=== PATIENT | female | born 1995 | race Caucasian/White ===

== ENCOUNTER 2024-05-25 21:18 | Outpatient (REF) | payer OTHER, SELFPAY | END 2024-05-25 21:19 | disposition home or self-care (01) | LOC: LAB 21:18 | PROVIDERS: Visit Provider Physician Assistant | DX: Z01.419 Encounter for gynecological examination (general) (routine) without abnormal findings (principal) | CPT/HCPCS: 88175 ==

== ENCOUNTER 2025-06-09 14:37 | Outpatient (REF) | payer BC, SELFPAY ==
--- OUTSIDE RECORDS SUMMARY | 2025-06-15 15:19 | XMS_ITS | CCD ---
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 [facility] Comment on above: TESTS RESULT FLAG UNITS REF RANGE LAB Clinician Provided Cytology Information Source.............Cervix;Endocervix No. of containers..01 ThinPrep Vial Age Algo ACOG Bronwyn... -28 10 FLAG LEGEND: L-Low Normal,H-High Normal,LL-Alert Low,HH-Alert High <-Panic Low,>-Panic High,A-Abnormal,AA-Critical Abnormal Performed at: 01 =G [facility] [address] [address] Lis Mclean MD, IGP, RFX APTIMA HPV ASCU Note . [facility] Comment on above: TESTS RESULT FLAG UNITS REF RANGE LAB DIAGNOSIS: 02 NEGATIVE FOR INTRAEPITHELIAL LESION OR MALIGNANCY. Specimen adequacy: 02 Satisfactory for evaluation. No endocervical component is identified. Performed by: 02 Shoshana Perez, Can Dragger ([facility]) . 02 Note: Note 02 The Pap smear is a screening test designed to aid in the detection of premalignant and malignant conditions of the uterine cervix. It is not a diagnostic procedure and should not be used as the sole means of detecting cervical cancer. Both false-positive and false-negative reports do occur. Test Methodology: Note 02 The [employer](R) Retail Helper was unable to read this specimen. Therefore a manual review was performed. FLAG LEGEND: L-Low Normal,H-High Normal,LL-Alert Low,HH-Alert High <-Panic Low,>-Panic High,A-Abnormal,AA-Critical Abnormal Performed at: 02 WB [facility] [address] [place] [address] Lis Mclean MD, . 02 The HPV DNA reflex criteria were not met with this specimen result therefore, no HPV testing was performed. The HPV DNA reflex criteria were not met with this specimen result therefore, no HPV testing was performed. Performed at: = - [facility] [address] [id number] Marble Setter: Lis Mclean MD, Phone: [phone] Performed at: - [facility] [address] [id number] Marble Setter: Lis Mclean MD, Phone: [phone] BRUSH-SPATULA CERVIX ENDOCERVIX [facility] PATHOLOGY REQUEST FOR LAB CO RPon 06-15-2025 PATHOLOGY REQUEST FOR LAB CAROLINE [facility] Comment on above: See report. Scanned copy available in [facility] US PELVIC COMPLETE W/ TVon 0 12-23-2024 [...] II, MD, PHD at 24-Dec-2024 09:01:53 AM [facility] Normal Not Available Comment on above: Order Comment: US PELVIS-TRANSVAG IF IND ICATED No LMP recorded. IGP,APTIMA HPV,AGE GDLNon AGE GDLN ACOG TESTING Note . [facility] Comment on above: TESTS RESULT FLAG UNITS REF RANGE LAB Clinician Provided Cytology Information Source.............Cervix;Endocervix No. of containers..01 ThinPrep Vial Age Algo ACOG Bronwyn... FLAG LEGEND: L-Low Normal,H-High Normal,LL-Alert Low,HH-Alert High <-Panic Low,>-Panic High,A-Abnormal,AA-Critical Abnormal Performed at: 01 =G [address] [address] Lis Mclean MD, IGP, RFX APTIMA HPV ASCU Note . [facility] Comment on above: TESTS RESULT FLAG UNITS REF RANGE LAB DIAGNOSIS: 02 NEGATIVE FOR INTRAEPITHELIAL LESION OR MALIGNANCY. FUNGAL ORGANISMS MORPHOLOGICALLY CONSISTENT WITH DONNA SPECIES ARE PRESENT. THIS SPECIMEN WAS RESCREENED PART OF OUR CLAIM INVESTIGATOR PROGRAM. Specimen adequacy: 02 Satisfactory for evaluation. No endocervical component is identified. Performed by: 03 Fawn Herzog, Brake Operator ([facility]) QC reviewed by: 02 Adwoa Rincon Brake Operator . 02 Note: Note 02 The Pap [...] <-Panic Low,>-Panic High,A-Abnormal,AA-Critical Abnormal Performed at: [address] [address] Lis Mclean MD, 03 [facility] [address] [place] [address] Chase Delacruz PhD, Performed at: = - [facility] [id number] Marble Setter: Lis Mclean MD, Phone: [phone] Performed at: [facility] [id number] Marble Setter: Lis Mclean MD, Phone: [phone] BRUSH-SPATULA CERVIX ENDOCERVIX [facility] URETHRITIS/DISCHARGE PLUS VA GINITIS (HTRX)on 05-27-2024 ATOPOBIUM VAGINAE 0.000 [facility] ATOPOBIUM VAGINAE Not detected [facility] BVAB 2,3 (BACTERIAL VAGINOSIS ASSOCIATED BACTERIA 2, 3); MOBILUNCUS SPP 0.000 [facility] BVAB 2,3 (BACTERIAL VAGINOSIS ASSOCIATED BACTERIA 2, 3); MOBILUNCUS SPP Not detected [facility] DONNA ALBICANS, PARAPSILOSIS, TROPICALIS 0.000 [facility] DONNA ALBICANS, PARAPSILOSIS, TROPICALIS Not detected [facility] DONNA GLABRATA 0.000 [facility] DONNA GLABRATA Not detected [facility] DONNA KRUSEI 0.000 [facility] DONNA KRUSEI Not detected [facility] CHLAMYDIA TRACHOMATIS 0.000 [facility] CHLAMYDIA TRACHOMATIS Not detected [facility] GARDNERELLA VAGINALIS 0.000 [facility] GARDNERELLA VAGINALIS Not detected [facility] MEGASPHAERA (TYPES 1, 2) 0.000 [facility] MEGASPHAERA (TYPES 1, 2) Not detected [facility] MYCOPLASMA GENITALIUM 0.000 [facility] MYCOPLASMA GENITALIUM Not detected [facility] NEISSERIA GONORRHOEAE 0.000 [facility] NEISSERIA GONORRHOEAE Not detected [facility] TRICHOMONAS VAGINALIS 0.000 [facility] TRICHOMONAS VAGINALIS Not detected [facility] XR HIPS BILAT W OR WO PELVIS 2 VWSon 03-16-2024 XR HIPS BILAT W OR WO PELVIS 2 VWS XR HIPS BILAT W OR WO PELVIS 2 VWS XR HIPS BILAT W OR WO PELVIS 2 VWS Hqpk-Cxlgc-Ubwqzfj disease, left Findings: There is no fracture or destructive lesion. Impression: No acute findings. Chronic deformity of bilateral hips noted. Stable bilateral hardware. 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 Finalized by Dylon Haider MD on 03/16/2024 6:26 AM Normal [facility] PAP ACOG PANEL 2: 21 to 29on 02-27-2023 Age Gdln ACOG Testing Normal [facility] Comment on above: Performed By: #### [id number] #### [facility] [address] [place], [place] [id number] Dr. Cas Muñiz PAP ACOG PANEL 2: 21 to 29on 02-19-2022 . . Normal [facility] Comment on above: Performed By: #### [id number] #### [facility] [address] [place], [place] [address] Dr. Cas Muñiz Age Gdln ACOG Testing 21-29 Normal [facility] Comment on above: Performed By: #### [id number] #### [facility] [address] [place] [address] Dr. Cas Muñiz DIAGNOSIS: Comment [facility] Comment on above: Result Comment: NEGATIVE FOR INTRAEPITHE LIAL LESION OR MALIGNANCY. FUNGAL ORGANISMS MORPHOLOGICALLY CONSISTENT WITH DONNA SPECIES ARE PRESENT. Performed By: #### [id number] #### [facility] [address] [place] [address] Dr. Cas Muñiz Methodology: Comment Normal [facility] Comment on above: Result Comment: This liquid based ThinPr ep(R) pap test was screened with the use of an image guided system. Performed By: #### [id number] #### [facility] [address] [place] [address] Dr. Cas Muñiz Note: Comment Normal [facility] Comment on above: Result Comment: The Pap smear is a scree dottie test designed to aid in the detection of premalignant and malignant conditions of the uterine cervix. It is not a diagnostic procedure and should not be used as the sole means of detecting cervical cancer. Both false-positive and false-negative reports do occur. . Performed By: #### 4 [id number] #### [facility] [address] [place] [address] Dr. Cas Muñiz Performed by: Comment Normal [facility] Comment on above: Result Comment: Mary Jane Dobbs Cytotechfrancisca ologvioleta (ASCP) Performed By: #### 4 [id number] #### [facility] [address] [place] [address] Dr. Cas Muñiz Reflex Criteria: Comment [facility] Comment on above: Result Comment: The HPV DNA reflex crite chemo were not met with this specimen result therefore, no HPV testing was performed. . Performed By: #### 4 [id number] #### [facility] [address] [place] [address] Dr. Cas Muñiz Specimen adequacy: Comment Normal [facility] Comment on above: Result Comment: Satisfactory for evaluat ion. Endocervical and/or squamous metaplastic cells (endocervical component) are present. Performed By: #### 4 [id number] #### [facility] [address] [place] [address] [address] Cas Muñiz VAGINITIS/VAGINOSIS DNA PROB Tima 02-15-2022 Donna species Positive Abnormal Negative [facility] Comment on above: Performed By: #### VAGINT #### [facility] [address] [address] [address] Cas Muñiz Gardnerella vaginalis Positive Abnormal Negative [facility] Comment on above: Performed By: #### VAGINT #### [facility] [address] [address] [address] Cas Muñiz Trichomonas vaginalis Negative Normal Negative [facility] Comment on above: Performed By: #### VAGINT #### [facility] [address] [address] [address] Cas Muñiz Gynecology Office/Clinic Not tima [...] of ovarian cancer presented. 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 with less menstrual cramping [...] Medical History Ongoing No qualifying data Historical Hrbg-Dllas-Zowouog disease Procedure/Surgical History left hip surgery (11/05/2013), [...] HCG, Urine: Negative (04/21/19 10:37:00 EDT) Normal [facility] Comment on above: Result Comment: Electronically Signed By : Diana Seo MD\.br\Date and Time Signed: 04/21/19 10:59 EDT CNOVon 08-16-2017 CNOV Office Visit (INOPIN) SAMMIE DYER ([id number]) 1995 FDate Time Provider Jqcwhvpehv30/17/17 3:15 PM OPAL POSEY During your visit today, we recorded the following information about you: Last Period 08/01/17Opal Posey MD 08/16/2017 3:55 PM SignedI have [...] stretching and yoga-physical therapy-discussed importance of continued conditioningPeParson MDPGY-3 Orthopaedic SurgeryPager [phone] 16, 20173:49 PMAfter 5:00PM and weekends, please page 2-BONEReferring [...] Resolved Hip impingement syndrome [M25.859] INVALID FOR*Letter [facility] Center[facility] M.D.Department of Pediatric Orthopaedic Surgery / [id number] [place], [place] [address]Mgdtzi: [facility]/[phone] Appts.: [facility]/[phone]: [facility]/[phone] 16, 2017RE: Sammie GomezCCF#: [id number]: (M25.859) Hip impingement syndrome, unspecified laterality(primary encounter [...] Status:Closed by OPAL POSEY MD on 08/16/17 Normal [facility] PROGRESSon 08-16-2017 PROGRESS HNO ID: [id number] thor: Randy (Res) SuraceService: (none)Author Type: ResidentType: Progress NotesFiled: 08/16/2017 3:55 PMNote Text:Orthopaedic Clinic Follow-up Progress NoteAugust 16, 20173:42 PMSammie [...] importance of continued conditioningPeJANELLE ParsonGY-3 Orthopaedic SurgeryPager [phone] 20163:49 PMAfter 5:00PM and weekends, please page 2-BONE Normal [facility] PROGRESS HNO ID: [id number] thor: Opal Mcdaniels: (none)Author Type: PhysicianType: Progress NotesFiled: 08/16/2017 3:55 PMNote Text:I have reviewed the history and physical obtained and documented by theresident and I personally participated in the smalls components. I agree withthe findings and plan of care, with the additions contained within mydictation.Opal Posey M.D. Normal [facility] PROGRESS HNO ID: [id number] thor: Sheila Rodriguez RtService: (none)Author Type: (none)Type: Progress NotesFiled: 08/16/2017 3:18 PMNote Text: Radiology Service Progress NotePATIENT NAME: Sammie GomezMRN: [id number] OF SERVICE: August 16, 2017TIME: 3:04 PMPATIENT IDENTITY VERIFICATION COMPLETED USING TWO (2) METHODS: Patientconfirmed name verbally and Date of .PATIENT GENDER DATA: Female. status: : NoBreastfeeding status: NO.PATIENT RELEVANT IMPLANT DATA REVIEWED: Not ApplicableRADIOLOGY DEPARTMENT: General X-ray: Exam(s) Completed: Pelvis X-Ray:Pelvis with Hip LeftPERIPHERAL IV DATA: Not applicableSIGNED BY: Sheila Rodriguez RtNov2016 3:04 PM Normal [facility] XR HIP 3V PELV+ AP/LAT LTon 08-16-2017 [...] JOHNSON MD on Aug 16 2017 4:46PM [id number] Normal [facility] CNOVon 05-10-2017 CNOV Office Visit (INOPIN) SAMMIE DYER ([id number]) 1995 FDate Time Provider Department05/10/17 3:15 PM [...] and will likely reassess in 4-6 months timeclinically.Opal Posey, MDReferring Provider: SELF [200]Allergies As of Date: 05/10/2017(No Known Allergies)Date Reviewed: 05/10/2017Reviewed by: Gracia Gambino Ma - Fully AssessedReason for Visit: Established Patient [175] Cmt: left hip painPrimary Visit Diagnosis:Hip impingement syndrome, unspecified laterality [M25.859] Other Visit Diagnosis:Trochanteric bursitis of left hip [M70.62]Order(s):CONSULT TO PHYSICAL THERAPY [9032] Order #: [id number]: 1Problem List As Of Date 05/10/2017 Noted Resolved Hip impingement syndrome [M25.859] INVALID FOR* Status:Closed by OPAL POSEY MD on 05/10/17 Normal [facility] PROGRESSon 05-10-2017 PROGRESS HNO ID: [id number] thor: Opal PoseySer: (none)Author Type: PhysicianType: Progress NotesFiled: 05/10/2017 3:45 PMNote Text:ORTHOPAEDIC SURGERYReferring Physician:SELFCC: Left hip painHPI: Sammie Gomez is a pleasant 21 year old female who [facility]. Sammie has [...] in 4-6months time clinically.Opal Posey MD Normal [facility] PROGRESS HNO ID: [id number] thor: Lisa (Rt) Ruthie Rojo: (none)Author Type: TechnicianType: Progress NotesFiled: 05/10/2017 2:47 PMNote Text: Radiology Service Progress NotePATIENT NAME: Sammie GomezMRN: [id number] OF SERVICE: May 10, 2017TIME: 2:47 PMPATIENT IDENTITY VERIFICATION COMPLETED USING TWO (2) METHODS: Patientconfirmed name verbally and ID band matches..PATIENT GENDER DATA: Female. 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: [employer] Transcribe Date/Time: May 10 2017 2:54PDictated by : JUAN M COPELAND MDThis examination was interpreted and the report reviewed and electronically signed by: JUAN M COPELAND MD on May 10 2017 2:57PM EST Normal [facility] Vital Signs Date Time Vital Sign Value Performing Clinician Beni canales 06-09-2025 16:03-0400 Body mass index (BMI) [Ratio] 30.03 kg/m2 Eladia Pete ATTRACTION WORKER Work Phone: [facility] 06-09-2025 16:03-0400 Body weight 75.07 kg Eladia Juan R ATTRACTION WORKER Work Phone: [facility] 06-09-2025 16:03-0400 Diastolic blood pressure 68 mm[Hg] Eladia Juan R ATTRACTION WORKER Work Phone: [facility] 06-09-2025 16:03-0400 Systolic blood pressure 120 mm[Hg] Eladia Bradshawly ATTRACTION WORKER Work Phone: [facility] 05-25-2024 14:27-0400 Body mass index (BMI) [Ratio] 27.96 kg/m2 Caryl Bellevue PA Work Phone: [facility] 05-25-2024 14:27-0400 Body weight 69.91 kg Caryl Carlito PA Work Phone: [facility] 05-25-2024 14:27-0400 Diastolic blood pressure 70 mm[Hg] Caryl Bellevue PA Work Phone: [facility] 05-25-2024 14:27-0400 Systolic blood pressure 120 mm[Hg] Caryl Carlito PA Work Phone: [facility] Encounters Encounter Date Encounter Type Care Provider Facility Start: 06-09-2025 End: 06-09-2025 Patient encounter procedure Eladia Pete ATTRACTION WORKER Work Phone: [facility] Start: 06-09-2025 End: 06-09-2025 Periodic preventive med est patient 18-39 yrs Eladia Pete ATTRACTION WORKER Work Phone: [facility] F[facility]ima NASH Comment on above: Well woman exam with routine gynecological exam Start: 06-09-2025 End: 06-09-2025 ambulatory ELADIA BRADSHAWLY Not Available Start: 06-09-2025 End: 06-09-2025 Bamboo flowsheet Eladia Bradshawly ATTRACTION WORKER Work Phone: [facility] Start: 06-09-2025 End: 06-15-2025 Bamboo flowsheet Eladia Bradshawly ATTRACTION WORKER Work Phone: [facility] Start: 06-09-2025 End: 06-15-2025 [facility] Result Encounter Eladia Pete ATTRACTION WORKER Work Phone: [facility] Unsolicited Start: 06-09-2025 End: 06-15-2025 External Result Encounter Walter Portillo DO Work Phone: [facility] Unsolicited Start: 12-23-2024 End: 12-23-2024 ambulatory ELADIA JUAN R Not Available Start: 07-06-2024 End: 07-06-2024 ambulatory [...] Start: 05-25-2024 End: 05-27-2024 External Result Encounter Caryl Mayerjosé miguel BOYCE Work Phone: [facility] Unsolicited Start: 05-25-2024 End: 05-25-2024 Patient encounter procedure Caryl Carlito BOYCE Work Phone: [facility] Work Phone: Start: 05-25-2024 End: 05-25-2024 Periodic preventive med est patient 18-39 yrs Caryl Carlito BOYCE Work Phone: [facility] Comment on above: Well woman exam with routine gynecological exam; Exposure to STD; Vaginal discharge Start: 03-14-2024 End: 03-14-2024 ambulatory [facility] Start: 02-18-2023 End: 02-18-[address] ARLETTE VARGAS . Facility: Start: 02-13-2022 End: 02-13-[address] TA LISTED REQUEST Facility: Start: 08-16-2017 End: 08-16-2017 Ambulatory OPAL POSEY [facility] Start: 05-10-2017 End: 05-14-2017 Ambulatory OPAL POSEY [facility] Procedures Date Procedure Procedure Detail Performing Clinician Start: 06-09-2025 PATHOLOGY REQUEST FO R LAB CAROLINE Walter Portillo DO Work Phone: Start: 06-09-2025 IGP,APTIMA HPV,AGE GDLN Eladia Pete ATTRACTION WORKER Work Phone: Start: 05-25-2024 URETHRITIS/DISCHARGE PLUS VAGINITIS (HTRX) Caryl BOYCE Work Phone: Start: 05-25-2024 IGP,APTIMA HPV,AGE GDLN Caryl BOYCE Work Phone: Plan of Treatment Date Care Activity Detail Author Start: 06-15-2026 End: 06-15-2026 Patient encounter procedure 06/15/2026 4:00 PM EDT [facility] [address] [place] [id number] Walter Portillo DO [address] [place] [address] [facility] Start: 06-09-2025 End: 06-09-2025 Patient encounter procedure [facility] Comment on above: Arrived Start: 05-31-2025 Influenza vaccination Influenza Vacc ine (#1) [facility] Start: 07-06-2024 End: 07-06-2024 Patient encounter procedure 07/06/2024 3:50 PM EDT Office Visit [facility] [address] [place] [id number] Caryl Ch, PA [address] [place] [address] [facility] Start: 05-31-2024 Influenza vaccination Influenza Vacc ine (#1) [facility] Start: 05-25-2024 End: 05-25-2024 Patient encounter procedure 05/25/2024 2:00 PM EDT Office Visit [facility] [address] [place] [phone] Caryl Ch, PA [address] [place], [place] [id number] Arrived [facility] Comment on above: Arrived CHLAMYDIA TRACHOMATI S (GENITO/STI) CHLAMYDIA TRACHOMATIS (GENITO/STI) Lab Routine Exposure to STD Ordered: 05/25/2024 [facility] Comment on above: Ordered: 05/25/2024 Cytology Cervical or vaginal smear or scraping study Pap Smear Pathology and Cytology Routine Well woman exam with routine gynecological exam Ordered: 05/25/2024 [facility] Work Phone: Comment on above: Ordered: 05/25/2024 Cytology Cervical or vaginal smear or scraping study Pap Smear Pathology and Cytology Routine Well woman exam with routine gynecological exam Ordered: 06/09/2025 [facility] Work Phone: Comment on above: Ordered: 06/09/2025 Neisseria gonorrhoea e DNA [Presence] in Unspecified specimen by HEATHER with probe detection Neisseria gonorrhea DNA probe, direct Lab Routine Exposure to STD Ordered: 05/25/2024 [facility] Comment on above: Ordered: 05/25/2024 SURESWAB(R) ADVANCED VAGINITIS PLUS, TMA SURESWAB(R) ADVANCED VAGINITIS PLUS, TMA Pathology and Cytology Routine Vaginal discharge Ordered: 05/25/2024 [facility] Comment on above: Ordered: 05/25/2024 Payers Date Payer Category Payer [facility] [id number] 2024 Unknown [id number] 2024 Medicaid MEDICAID [facility] [id number] 2024-Present [phone] [address] [place] [address] Medicaid [id number] 1995 Unknown [id number] 1995 Unknown [id number] 1995 Unknown [id number] 1995 Unknown [id number] 1259 1995 Unknown [id number] 1259 1995 Unknown [id number] 1259 1959 Unknown [id number] 1959 Unknown [id number] 1959 Unknown [id number] Social History Date Type Detail Facility Start: 02-11-2023 Tobacco smoking stat [facility] Never smoked tobacco [facility] Start: 05-25-2024 End: 06-09-2025 Alcoholic beverage intake Lifetime non-drinker (finding) [facility] Start: 02-20-2024 End: 06-09-2025 [facility] of [facility] function [facility] Start: 02-20-2024 End: 06-09-2025 Tobacco use panel [facility] Start: 03-07-2023 Alcohol Comment caffeine intak e: 1-2 cups per day; coffee [facility] Start: 1995 Sex assigned at Not [...] Diagnosis Date Perthes disease (HHS-HCC) Pleurisy 11/2015 [facility] [place] Skin rash Social History Tobacco Use [...] nursing note reviewed. Exam conducted with a feed adviser present. Vitals: Estimated body mass index is [...] them. Patient can also view results via [employer]. I reinforced importance of condom use for [...] for a telehealth appointment. Patients Phone #: [phone] (mobile) Current Medications: currently has no medications [...] OTHER SURGICAL HISTORY 2019 childbirth OVARY SURGERY 2018 Right ovary removed TUBAL LIGATION Left 2020 [...] History: Diagnosis Date Perthes disease Pleurisy 11/2015 [facility] [place]-pleurisy Skin rash Social History Tobacco Use [...] nursing note reviewed. Exam conducted with a feed adviser present. Vitals: Estimated body mass index is [...] of: AUSTEN Raines documented in this encounter [facility] Evaluation note Note Date & Type Note Facility Evaluation note Diagnosis Yeast infection- Primary documented in this encounter [facility] Evaluation note Note Date & Type Note Facility Evaluation note Diagnosis Well woman exam with routine gynecological exam Routine gynecological examination Exposure to STD Vaginal discharge Leukorrhea, not specified as infective documented in this encounter [facility] Evaluation note Note Date & Type Note Facility Evaluation note Diagnosis Well woman exam with routine gynecological exam Routine gynecological examination documented in this encounter [employer] Healthcare Summary Purpose Family History No Family [...] section and content) DATE CREATED AUTHOR 03/25/2018 [facility] DATE CREATED AUTHOR AUTHOR'S ORGANIZ ATION 05/08/2019 [facility] DATE CREATED AUTHOR AUTHOR'S ORGANIZ ATION 07/01/2022 [facility] DATE CREATED AUTHOR AUTHOR'S ORGANIZ ATION 03/08/2023 [facility] DATE CREATED AUTHOR AUTHOR'S ORGANIZ ATION 03/16/2024 [facility] DATE CREATED AUTHOR AUTHOR'S ORGANIZ ATION 06/12/2025 [facility] [place] Reason for Visit (unrecogniz ed section and [...] BE BASED ON THE PRIMARY CLINICAL RECORDS. [facility] [employer] [facility]. provides no warranty or guarantee of the accuracy or completeness of information in this document.
== END 2025-06-09 14:38 | disposition home or self-care (01) ==
LOC: LAB 14:37
PROVIDERS: Visit Provider Obstetrics & Gynecology
DX: N90.89 Other specified noninflammatory disorders of vulva and perineum (principal)

== ENCOUNTER 2025-06-09 20:22 | Outpatient (REF) | payer BC, SELFPAY ==
--- OUTSIDE RECORDS SUMMARY | 2024-02-26 06:00 | XMS_ITS ---
Author Organization [facility] vices Address [address] [place], [place] [id number] Care Team Providers Care Quarry Supervisor Dimension Stone Name Role Phone Johnnie Savage Unavailable [phone] REASON FOR VISIT 2 Week Fatigue, LCP disease Social History Sex Assigned At : Social History Observation Description Sex Assigned At Female Encounters Encounter Location Date Provider Diagnosis Main [address] [place], [place] [id number] 02/26/2024 Savage Blair Plan Of Treatment No Information Progress Notes * Marichuy HARRISOB:[birth year] (29 yo F)Acc No.[id number]:02/26/2024 Medical Note Patient: Sammie GARCIA Provider: Shelley Blair PA-C :1995 A ge:28 Y S ex:Female Date:02/26/2024 Address:[address] [place], [place] [phone] Subjective: * Chief Complaints: * 1 . 2 Week Fatigue, LCP disease. * Medical History: Objective: * Vitals: Assessment: Plan: * Treatment: * Billing Information: * Visit Code: * Procedure Codes: * Electronic signature of AUSTEN Vergara on 06/09/2025 at 03:50 PM EDT Sign off status: Pending * Provider: Shelley Blair PA-C Date: 0 02/26/2024 Generated for Printi ng/Faxing/eTransmitting on: 0 06/09/2025 03:50 PM EDT
--- OUTSIDE RECORDS SUMMARY | 2024-10-26 10:00 | XMS_ITS ---
Author Organization [facility] Address [address] [place] [address] Care Team Providers Care Card Punching Machine Operator Name Role Phone Bryan Benoit Unavailable [phone] Hakeem Reno Unavailable [phone] REASON FOR VISIT LEFT HIP PAIN NO FILMS WANTS TO SEE RSS Encounters Encounter Location Date Provider Diagnosis [facility] [address] [place] [phone] 10/26/2024 Hakeem Reno Left hip pain M25 .552 Assessments Encounter Date Diagnosis (ICD Code) Assessment Notes Treatment Notes Treatment Clinical Notes Section Notes 10/26/2024 Left hip pain (ICD-10 - M25.552) Plan Of Treatment Pending Test Test Name Order Date RSS: HIP LEFT PREOP AP LAT, AP PELVIS [facility] [place] [id number] 10/26/2024 Progress Notes * ONESIMO HARRISDOB:1995 (29 yo F)Acc No.[id number]:10/26/2024 Patient: Delphine AMAYA ONESIMO Carroll Provider: Anushka Reno MD :1995 A ge:28 Y S ex:Female Date:10/26/2024 Address:[address] [place], [place] [phone] Subjective: * Chief Complaints: * 1 . LEFT HIP PAIN NO FILMS WANTS TO SEE RSS. * Medical History: Objective: * Vitals: Assessment: * Assessment: 1. L eft hip pain - M25.552 (Primary) Plan: * Treatment: * Procedure Codes: 7 3502 X-RAY EXAM HIP UNI 2-3 VIEWS Forms: * Images: * Electronic signature of Hakeem Reno MD on 06/09/2025 at 03:50 PM EDT Sign off status: Pending * Provider: Anushka Reno MD Date: 0 10/26/2024 Generated for Bonifacio urbina/Lauren/Sy on: 0 06/09/2025 03:50 PM EDT
--- OUTSIDE RECORDS SUMMARY | 2025-06-09 16:00 | XMS_ITS | Encounter Summary ---
Author Organization [facility] Address [address] [place] [address] Care Team Providers Care Collision Repair Technician Name Role Phone Unavailable Primary Care Provider Unavailabl e Reason for Visit * Reason Comments Well Women Visit Encounter Details Date Type Department Care Team (Latest Contact Info) Description 06/09/2025 4:00 PM EDT Procedure Visit [facility] [address] [address] Eladia Pete, MADELYN [address] [facility] [address] [place] [address] Well woman exam with routine gynecological exam Social History Tobacco Use Types Packs/Day Years Used Date Smoking Tobacco: Never Alcohol Use Standard Drinks/Week Comments Never 0 (1 standard drink = 0.6 oz pure alcohol) caffeine intake: 1-2 cups per day; coffee Comments Unknown Sex and Gender Information Value Date Recorded Sex Assigned at Not on file Legal Sex Female 7:11 PM EDT Gender Identity Not on file Sexual Orientation Not on file documented as of this encounter Last Filed Vital Signs Vital Sign Reading Time Taken Comments Blood Pressure 120/68 06/09/2025 4:03 PM EDT Pulse - - Temperature - - Respiratory Rate - - Oxygen Saturation - - Inhaled Oxygen Concentration - - Weight 75.1 kg (165 lb 8 oz) 06/09/2025 4:03 PM EDT Height - - Body Mass Index 30.03 09/28/2020 12:00 PM EST documented in this encounter Progress Notes * AUSTEN Raines - 06/09/2025 4:00 PM EDT Reason for Appointment: Patient ID: Sammie Davis is a 29 y.o. female who presents for Well Women Visit Patient presents today for Annual Exam. MEDICATIONS No current outpatient medications ALLERGIES Allergies Allergen Reactions ??? 2nd Skin Quick Heal Hives Steri strips PROBLEMS Active Ambulatory Problems Diagnosis Date Noted ??? No Active Ambulatory Problems Resolved Ambulatory Problems Diagnosis Date Noted ??? No Resolved Ambulatory Problems Past Medical History: Diagnosis Date ??? 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 Pleurisy 11/2015 ??? Skin rash HISTORY PAST MEDICAL HISTORY SOCIAL HISTORY Past Medical History: Diagnosis Date ??? 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 Pleurisy 11/2015 [facility]-ple[facility] ??? Skin rash Social History Tobacco Use ??? Smoking status: Never ??? Smokeless tobacco: Not on file Substance Use Topics ??? Alcohol use: Never Comment: caffeine intake: 1-2 cups per day; coffee ??? Drug use: Never FAMILY HISTORY Family History Problem Relation Name Age of Onset ??? Mental illness Father Suicide age 44 ??? Cervical cancer Maternal Grandmother SURGICAL HISTORY Past Surgical History: Procedure Laterality Date ??? OTHER SURGICAL HISTORY 2000 Severe lazy eye repair ??? OTHER SURGICAL HISTORY 2002 Surgery d/t Perthes Dz Right leg ??? OTHER SURGICAL HISTORY 2013 RT Hip repair (2 screws) ??? OTHER SURGICAL HISTORY 2019 childbirth ??? OVARY SURGERY 2018 Right ovary removed ??? TUBAL LIGATION Left 2020 REVIEW OF SYSTEMS Review of Systems: Review of Systems Constitutional: Negative. HENT: Negative. Eyes: Negative. Respiratory: Negative. Cardiovascular: Negative. Gastrointestinal: Negative. Genitourinary: Negative. Musculoskeletal: Negative. Skin: Negative. Neurological: Negative. All other systems reviewed and are negative. Hematological: Negative. Endocrine: Negative. Allergic/Immunologic: Negative. OBJECTIVE Objective: Physical Exam Constitutional: Appearance: Normal appearance. She is well-developed. Genitourinary: Vulva normal. Right Adnexa: not tender and no mass present. Left Adnexa: not tender and no mass present. No cervical discharge. Breasts: Breasts are soft. Right: Normal. Left: Normal. HENT: Head: Normocephalic. Nose: Nose normal. Mouth/Throat: Mouth: Mucous membranes are moist. Cardiovascular: Rate and Rhythm: Normal rate and regular rhythm. Pulmonary: Effort: Pulmonary effort is normal. Breath sounds: Normal breath sounds. Abdominal: General: Bowel sounds are normal. There is no distension. Palpations: Abdomen is soft. Tenderness: There is no abdominal tenderness. There is no guarding or rebound. Musculoskeletal: General: No swelling. Normal range of motion. Cervical back: Normal range of motion. Right lower leg: No edema. Left lower leg: No edema. Neurological: General: No focal deficit present. Mental Status: She is alert and oriented to person, place, and time. Skin: General: Skin is warm and dry. Psychiatric: Mood and Affect: Mood normal. Behavior: Behavior normal. Vitals and nursing note reviewed. Exam conducted with a wire coater present. Vitals: Estimated body mass index is 30.03 kg/m?? as calculated from the following: Height as of 20: 5' 2.25 . Weight as of this encounter: 165 lb 8 oz. BP: 120/68 Patient's last menstrual period was 05/29/2025 (exact date). ASSESSMENT & PLAN ICD-10-CM 1. Well woman exam with routine gynecological exam Z01.419 Pap Smear No orders of the defined types were placed in this encounter. Annual Wellness Exam: Patient presents today for routine annual exam. Patient states she has no current complaints. Patients vitals were reviewed and within normal limits. Growth and development is noted to be appropriate for age. Menstrual history is noted to be regular with no concerns reported. No mental health concerns was expressed. Pap Smear: Speculum was inserted into the vagina and pap was obtained without difficulty. No HPV testing was performed per age guideline. Patient was advised that pap results could take anywhere from 7 to 10 days to receive and our office will reach out to the patient with those once we have them. Patient canalso view results via ticketeat. I reinforced importance of condom use for STI prevention. Patient declined cultures to be performed with today's visit. Breast Exam: Upon examination, clinical breast exam was noted to be normal. Patient was counseled on breast self-awareness, including the importance of knowing what is normal for her own breasts and promptly reporting any changes such as new lumps, skin dimpling, nipple discharge, or pain. Screening mammogram recommended annually beginning at age 40 or earlier if risk factors are present. Discussed signs and symptoms of breast cancer and when to seek medical attention. Answered all patient questions. Contraceptive Counseling (if applicable): Patient is currently using tubal as a form of contraceptive. Follow Up: Patient is to return to our office in one year for annual exam unless needed otherwise. Documented by AUSTEN Raines on behalf of: Eladia Pete NP documented in this encounter Plan of Treatment Upcoming Encounters Date Type Department Care Team (Late st Contact Info) Description 06/15/2026 4:00 PM EDT Procedure Visit [facility] [address] [facility] [phone] Walter Portillo DO [address] [place] [address] Scheduled Orders Name Type Priority Associated Diagnoses Orde r Schedule Pap Smear Pathology and Cytology Routine Well woman exam with routine gynecological exam Ordered: 06/09/2025 documented as of this encounter Visit Diagnoses Diagnosis Well woman exam with routine gynecological exam Routine gynecological examination documented in this encounter
--- OUTSIDE RECORDS SUMMARY | 2025-06-09 20:26 | XMS_ITS | Clinical Summary ---
Author Organization [facility] Address [address] [place] [address] Care Team Providers Care Ledger Poster Name Role Phone Unavailable Primary Care Provider Unavailabl e Allergies Active Allergy Reactions Criticality Noted Date Comments 2nd Skin Quick Heal Hives 02/18/2023 Steri strips Medications No known medications Encounters Date Type Department Care Team Description 06/09/2025 4:00 PM EDT Procedure Visit [facility] [address] [place] [address] Eladia Pete NP Well woman exam with routine gynecological exam 06/09/2025 Bamboo flowsheet [facility] [address] [facility] [place] [address] Eladia Pete NP from Last 3 Months Family History Medical History Relation Name Comments Mental illness Father Suicide age 4 4 Cervical cancer Maternal Grandmother Relation Name Status Comments Father Maternal Grandmother Mother Alive Social History Tobacco Use Types Packs/Day Years Used Date Smoking Tobacco: Never Tobacco Cessation:Counseling Given: Not Answered Alcohol Use Standard Drinks/Week Comments Never 0 (1 standard drink = 0.6 oz pure alcohol) caffeine intake: 1-2 cups per day; coffee Comments Unknown Sex and Gender Information Value Date Recorded Sex Assigned at Not on file Legal Sex Female 7:11 PM EDT Gender Identity Not on file Sexual Orientation Not on file Last Filed Vital Signs Vital Sign Reading Time Taken Comments Blood Pressure 120/68 06/09/2025 4:03 PM EDT Pulse - - Temperature - - Respiratory Rate - - Oxygen Saturation - - Inhaled Oxygen Concentration - - Weight 75.1 kg (165 lb 8 oz) 06/09/2025 4:03 PM EDT Height 158.1 cm (5' 2.25 ) 09/28/2020 12:[address] Body Mass Index 30.03 09/28/2020 12:00 PM EST Plan of Treatment Upcoming Encounters Date Type Department Care Team (Late st Contact Info) Description 06/15/2026 4:00 PM EDT Procedure Visit [facility] [address] [facility] [place] [address] Walter Portillo DO [address] [facility] [place] [address] Health Maintenance Due Date Last Done Comments Influenza Vaccine (#1) [address] [facility]
--- OUTSIDE RECORDS SUMMARY | 2025-06-09 20:26 | XMS_ITS | Encounter Summary ---
Author Organization [facility] Address [address] [place] [address] Care Team Providers Care Plasterer Stucco Name Role Phone Unavailable Primary Care Provider Unavailabl e Encounter Details Date Type Department Care Team (Late Contact Info) Description 06/09/2025 Bamboo flowsheet [facility] [address] [place] [address] Eladia Pete, MADELYN [address] [facility] [address] [place], [phone] Social History Tobacco Use Types Packs/Day Years [...] on file documented as of this encounter Plan of Treatment Upcoming Encounters Date Type Department Care Team (Late st Contact Info) Description 06/15/2026 4:00 PM EDT Procedure Visit [facility] [address] [place] [address] Walter Portillo DO [address] [facility] [address] [place], [facility] documented as of this encounter Visit Diagnoses Not on filedocumented in this encounter
--- OUTSIDE RECORDS SUMMARY | 2025-06-09 20:26 | XMS_ITS | Encounter Summary ---
Author Organization [facility] Address [address] [place] [address] Care Team Providers Care Automatic Lathe Operator Name Role Phone Unavailable Primary Care Provider Unavailabl e Encounter Details Date Type Department Care Team (Late st Contact Info) Description 06/24/2024 Abstract [facility] [address] [place] [address] Walter Portillo DO [address] [place], [place] [address] Social History Tobacco Use Types Packs/Day Years Used Date Smoking Tobacco: Never Alcohol Use Standard Drinks/Week Comments Never 0 (1 standard drink = 0.6 oz pure alcohol) caffeine intake: 1-2 cups per day; coffee Comments No Sex and Gender Information Value Date Recorded Sex Assigned at Not on file Legal Sex Female 7:11 PM EDT Gender Identity Not on file Sexual Orientation Not on file documented as of this encounter Plan of Treatment Upcoming Encounters Date Type Department Care Team (Late st Contact Info) Description 06/15/2026 4:00 PM EDT Procedure Visit [facility] [address] [place] [address] Walter Portillo DO [address] [place], [place] [id number] documented as of this encounter Visit Diagnoses Not on filedocumented in this encounter
--- OUTSIDE RECORDS SUMMARY | 2025-06-09 20:26 | XMS_ITS | Encounter Summary ---
Author Organization [facility] Address [address] [place] [address] Care Team Providers Care Special Procedures Tech Name Role Phone Unavailable Primary Care Provider Unavailabl e Encounter Details Date Type Department Care Team (Late Contact Info) Description 02/14/2023 Abstract [facility] [address] [place] [address] Walter Portillo DO [facility] [address] [place], [place] [address] Social History Tobacco Use Types Packs/Day Years [...] on file Sexual Orientation Not on file COVID-19 Exposure Response Date Recorded In the last 10 days, have yo u been in contact with someone who was confirmed or suspected to have Coronavirus/COVID-19? No / Unsure 02/17/2023 3:03 PM EDT documented as of this encounter Plan of Treatment Upcoming Encounters Date Type Department Care Team (Late Contact Info) Description 06/15/2026 4:00 PM EDT Procedure Visit [facility] [address] [place] [phone] Walter Portillo DO [facility] [place] [address] documented as of this encounter Visit Diagnoses Not on filedocumented in this encounter
--- OUTSIDE RECORDS SUMMARY | 2025-06-09 20:26 | XMS_ITS | Clinical Summary ---
Author Organization [facility] Address [id number] [address] [place] [address] Care Team Providers Care Ehr Trainer Name Role Phone No Pcp, No Pcp Primary Care Provider Unavailabl e Allergies No known active allergies Medications cyclobenzaprine (FLEXERIL) 5 mg tablet Take 2 tablets (10 mg total) by mouth 2 (two) times a day as needed for muscle spasms. 20 tablet 07/22/2020 Active Active Problems Problem Noted Date Diagnosed Date Pelvic mass in female 08/18/2019 Estimated Date of Delivery Comme nts Yes 03/02/2020 Immunizations No known immunizations Social History Tobacco Use Types Packs/Day Years Used Date Smoking Tobacco: Some Days Vaping/E-cigarettes Smokeless Tobacco: Never Alcohol Use Standard Drinks/Week Comments Yes 0 (1 standard drink = 0.6 oz pur e alcohol) occasional Childcare Answer Date Recorded Childcare Unknown 08/15/2019 Employment Answer Date Recorded Employment Unknown 08/15/2019 Purpose - Life Answer Date Recorded Purpose and direction in life Unknown Estimated Date of Delivery Comme nts Yes 03/02/2020 Sex and Gender Information Value Date Recorded Sex Assigned at Not on file Legal Sex Female 1:04 PM EST Gender Identity Female 05/23/2023 2:50 PM EDT Sexual Orientation Not on file Last Filed Vital Signs Vital Sign Reading Time Taken Comments Blood Pressure 135/63 07/22/2020 1:00 PM EDT Pulse 63 07/22/2020 1:00 PM EDT Temperature 36.7 C (98.1 F) 07/22/2020 11:33 AM EDT Respiratory Rate 13 07/22/2020 12:15 PM EDT Oxygen Saturation 97% 07/22/2020 1:00 PM EDT Inhaled Oxygen Concentration - - Weight 77.1 kg (170 lb) 07/22/2020 7:22 AM EDT Height 157.5 cm (5' 2 ) 07/22/2020 7:22 AM EDT Body Mass Index 31.09 07/22/2020 7:22 AM EDT Plan of Treatment Health Maintenance Due Date Last Done Comments Depression Screening 2009 Tobacco Screening 2009 Adult BMI Screening 01/01/2016 Pap Smear 2018 DTaP,Tdap and Td Vaccines (7 - Td or Tdap) 05/27/2020 05/27/2010, 02/15/2003, 06/21/1999, Additional history exists COVID-19 Vaccine (2024-2 6 season) 2025 09/29/2021, 09/08/2021 Influenza Vaccine 05/31/2025 Medical Devices Implanted Type Area Optoelectronics Engineer Device Identifier Shelf Expiration Date Model / Serial / Lot Nl Im 44mm 5.5mm 4 Hl Hi Rt - [id number] - [id number] Implanted:Qty: 1 on 07/22/2020 by Delano Zambrano DPM at [facility] Nail Right: Foot [employer] [id number] 44 / [id number] 44 / Pg Fx 3.5mm 16mm Thrd Phntm - [id number] - [id number] Implanted:Qty: 1 on 07/22/2020 by Delano Zambrano DPM at [facility] Orthopedic Implant Right: Foot [employer] [id number] 16 / [id number] 16 / Pg Fx 3.5mm 18mm Thrd Phntm - [id number] - [id number] Implanted:Qty: 1 on 07/22/2020 by Delano Zambrano DPM at [facility] Orthopedic Implant Right: Foot [employer] [id number] 18 / F75-D2-69 18 / Pg Fx Antirotation 3.5mm 10mm - [id number] - [id number] Implanted:Qty: 1 on 07/22/2020 by Delano Zambrano DPM at [facility] Orthopedic Implant Right: Foot [employer] [id number] 10 / Q44-[id number] 10 / Explanted Type Area Optoelectronics Engineer Device Identifier Shelf Expiration Date Model / Serial / Lot K-Wire Sgl End Smth [id number] - [id number] - [id number] Explanted:Qty : 4 on 07/22/2020 by Delano Zambrano DPM at [facility] Orthopedic Implant Right: Foot [employer] [id number] / [id number] / Insurance MICHAEL Advance Directives * Full Code (Latest Code Status on File) Date Activated Date Inactivated Comments 08/18/2019 8:02 PM 08/19/2019 1:22 PM Care Teams Ehr Trainer Relationship Specialty Start Date End Date No Pcp, [place] [address] PCP - General Family Medicine 08/15/19
--- OUTSIDE RECORDS SUMMARY | 2025-06-09 20:26 | XMS_ITS | Patient Health Record ---
Author Organization [facility] Address [address] [place] [address] Care Team Providers Care Fur Operator Name Role Phone Bryan Benoit Unavailable [phone] Hakeem Reno Unavailable [phone] Reason For Referral No Information Plan Of Treatment No Information Insurance Providers Payer Name Payer Address Payer Phone Subscriber Number Group Number Insured Name Patient Relationship to Insured Coverage Start Date Coverage End Date [employer] [address] [place] [phone] [id number] ONESIMO HARRIS Self - patient is the insured
--- OUTSIDE RECORDS SUMMARY | 2025-06-09 20:26 | XMS_ITS | Encounter Summary ---
Author Organization [facility] Address [address] [place] [address] Care Team Providers Care Employee Communications Coordinator Name Role Phone Unavailable Primary Care Provider Unavailabl e Encounter Details Date Type Department Care Team (Late Contact Info) Description 06/04/2024 Orders Only [facility] [address] [place] [address] Miguelina Fields LPN [address] [place] [address] Social History Tobacco Use Types Packs/Day Years [...] EDT Procedure Visit [facility] [address] [place] [address] Walter Portillo DO [address] [place], [place] [phone] documented as of this encounter Procedures Procedure Name Priority Date/Time Associated Diagnosis Comments PAP SMEAR Routine 05/25/2024 12:00 AM EDT documented in this encounter Results * Pap Smear (05/25/2024 12:00 AM EDT) Swab Cervical swab / Unknown us Lindsey Nurse [facility] CYTOLOGY ORDERABLES Final Result EXTERNAL LAB documented in this encounter Visit Diagnoses Not on filedocumented in this encounter
--- OUTSIDE RECORDS SUMMARY | 2025-06-09 20:27 | XMS_ITS | CCD ---
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 Name Role Phone OPAL POSEY Unavailable Unavailable GURD, OPAL Cohn Unavailable Unavailable GURD, OPAL Cohn Unavailable Unavailable GURD, OPAL Cohn Unavailable Unavailable REQUEST, DR NONE LISTED Primary Care Unavaila brandie PORTILLO, DR CABRERA Attending Unavailable MILE, DR CABRERA Consulting Unavailable MILE, DR CABRERA Admitting Unavailable MARKER ., DR CHONG Attending Unavailable MARKER ., DR CHONG Admitting Unavailable MISC, DR LOPEZ Consulting Unavailable MISC, DR LOPEZ Primary Care Unavailable BRONSON ANDREA Referring Unavailable NO PCP, NO PCP Primary Care Unavailable Unavailable Primary Care Provider UnavailCARYL Kaufman Attending Unavailable CARYL CH Attending Unavailable Allergies Allergy Classification Reported Allergen(s) Allergy Type Date of Onset Reaction(s) Facility (10 sources) 2nd Skin Quick Heal Propensity to adverse reactions 3 Hives [facility] Medications Current Medications Medication Drug Class(es) Dates Sig (Normalized) Sig (Original) fluconazole 100 mg oral tablet (4 sources) Azole Antifungal Start: 05-25-2024 End: 06-04-2024 take 1 tablet by mouth once daily fluconazole (Diflucan) 100 MG tablet Indications: Well woman exam with routine gynecological exam Take 1 tablet (100 mg) by mouth Daily for 10 days 10 tablet 05/25/2024 06/04/2024 Active Problems Active Problems Problem Classification Problem Date Documented Date Episodic/Chronic Mycoses (2 sources) Mycosis; Translations: [Candidiasis, unspecified] 07-07-2024 Episodic Other bone disease and musculoskeletal deformities (1 source) 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], left leg; Translations: [Juvenile osteochondrosis of head of femur (vlsa-kvdtk-vogjymh), left leg] Onset: 03-14-2024 Chronic Other screening for suspected conditions (not mental disorders or infectious disease) (8 sources) Encounter for screening for malignant neoplasm of cervix; Translations: [ENC SCREENING MALIG NEOPLASM CERV] Onset: 02-13-2022 Episodic Unclassified (1 source) Pain, unspecified; Translations: [Pain, unspecified] Onset: 05-10-2017 Past or Other Problems Problem Classification Problem Date Documented Date Episodic/Chronic Immunizations and screening for infectious disease (4 sources) Encounter for screening for human papillomavirus (HPV); Translations: [Exposure to sexually transmissible disorder] Onset: 02-16-2022 05-25-2024 Episodic Other female genital disorders (1 source) Other specified noninflammatory disorders of vagina; Translations: [OTH SPEC NONINFLAMMATORY D/O VAGINA] Onset: 02-16-2022 Episodic Other female genital disorders (2 sources) Vaginal discharge; Translations: [Other specified noninflammatory disorders of vagina] 05-25-2024 Episodic Other non-traumatic joint disorders (1 source) Other specified joint disorders, unspecified hip; Translations: [Other specified joint disorders, unspecified hip] Onset: 08-16-2017 Episodic Results Test Name Value Interpretation Reference Range Facility US PELVIC COMPLETE W/ TVon 0 12-23-2024 US PELVIC COMPLETE W/ TV EXAM: US PELVIC COMPLETE W/ TV HISTORY: Pelvic pain, history of ovarian cysts. COMPARISON: None available. TECHNIQUE: Two-dimensional transabdominal grayscale ultrasound imaging of the pelvis was performed. Color flow Doppler imaging of the ovaries was also performed. Transvaginal was performed. FINDINGS: UTERUS 11.2 x 4.9 x 6.3 cm The uterus is retroflexed in position and demonstrates a normal, homogeneous echotexture. ENDOMETRIUM 0.3 cm The endometrium demonstrates a normal, homogeneous echotexture. RIGHT OVARY The right ovary is surgically absent. LEFT OVARY 3.6 x 2.3 x 2.8 cm The left ovary demonstrates a normal echotexture. There is normal color Doppler flow. Trace fluid is present within the cul-de-sac. IMPRESSION: 1. Unremarkable ultrasound of the pelvis. 2. Normal color Doppler flow within the left ovary, the right ovary is surgically absent. Electronically Signed:Electronically signed by PHU MONTGOMERY II, MD, PHD at 24-Dec-2024 09:01:53 AM [facility] Normal Not Available Comment on above: Order Comment: US PELVIS-TRANSVAG IF IND ICATED No LMP recorded. IGP,APTIMA HPV,AGE GDLNon AGE GDLN ACOG TESTING Note . [facility] Comment on above: TESTS RESULT FLAG UNITS REF RANGE LAB Clinician Provided Cytology Information Source.............Cervix;Endocervix No. of containers..01 ThinPrep Vial Age Algo ACOG Bronwyn... FLAG LEGEND: L-Low Normal,H-High Normal,LL-Alert Low,HH-Alert High <-Panic Low,>-Panic High,A-Abnormal,AA-Critical Abnormal Performed at: 01 =G [address] [address] Lis Mclean MD, IGP, RFX APTIMA HPV ASCU Note . [facility] Comment on above: TESTS RESULT FLAG UNITS REF RANGE LAB DIAGNOSIS: 02 NEGATIVE FOR INTRAEPITHELIAL LESION OR MALIGNANCY. FUNGAL ORGANISMS MORPHOLOGICALLY CONSISTENT WITH DONNA SPECIES ARE PRESENT. THIS SPECIMEN WAS RESCREENED PART OF OUR LEAD NETWORK ENGINEER PROGRAM. Specimen adequacy: 02 Satisfactory for evaluation. No endocervical component is identified. Performed by: 03 Fawn Herzog, Fur Mixer ([facility]) QC reviewed by: 02 Adwoa Rincon, Fur Mixer . 02 Note: Note 02 The Pap smear is a screening test designed to aid in the detection of premalignant and malignant conditions of the uterine cervix. It is not a diagnostic procedure and should not be used as the sole means of detecting cervical cancer. Both false-positive and false-negative reports do occur. Test Methodology: Note 02 This liquid based ThinPrep(R) pap test was screened with the use of an image guided system. . 02 The HPV DNA reflex criteria were not met with this specimen result therefore, no HPV testing was performed. FLAG LEGEND: L-Low Normal,H-High Normal,LL-Alert Low,HH-Alert High <-Panic Low,>-Panic High,A-Abnormal,AA-Critical Abnormal Performed at: [address] [facility] [address] [place] [address] Lis Mclean MD, 03 [facility] [address] [place] [address] Chase Delacruz PhD, Performed at: = - [facility] [address] [id number] Turkish Line Attendant: Lis Mclean MD, Phone: [phone] Performed at: - [facility] [id number] [place] Line Attendant: Lis Mclean MD, Phone: [phone] [facility] URETHRITIS/DISCHARGE PLUS VA GINITIS (HTRX)on 05-27-2024 ATOPOBIUM VAGINAE 0.000 [facility] Healthcare ATOPOBIUM VAGINAE Not detected [facility] BVAB 2,3 (BACTERIAL VAGINOSIS ASSOCIATED BACTERIA 2, 3); MOBILUNCUS SPP 0.000 [facility] BVAB 2,3 (BACTERIAL VAGINOSIS ASSOCIATED BACTERIA 2, 3); MOBILUNCUS SPP Not detected [facility] DONNA ALBICANS, PARAPSILOSIS, TROPICALIS 0.000 [facility] DONNA ALBICANS, PARAPSILOSIS, TROPICALIS Not detected [facility] DONNA GLABRATA 0.000 [facility] DONNA GLABRATA Not detected [facility] DONNA KRUSEI 0.000 [facility] DONNA KRUSEI Not detected [facility] CHLAMYDIA TRACHOMATIS 0.000 [facility] CHLAMYDIA TRACHOMATIS Not detected [facility] GARDNERELLA VAGINALIS 0.000 [facility] GARDNERELLA VAGINALIS Not [facility] MEGASPHAERA (TYPES 1, 2) 0.000 [facility] MEGASPHAERA (TYPES 1, 2) Not detected [facility] MYCOPLASMA GENITALIUM 0.000 [facility] MYCOPLASMA GENITALIUM Not detected [facility] NEISSERIA GONORRHOEAE 0.000 [facility] NEISSERIA GONORRHOEAE Not detected [facility] TRICHOMONAS VAGINALIS 0.000 [facility] TRICHOMONAS VAGINALIS Not detected [facility] Healthcare [facility] XR HIPS BILAT W OR WO PELVIS 2 VWSon 03-16-2024 XR HIPS BILAT W OR WO PELVIS 2 VWS XR HIPS BILAT W OR WO PELVIS 2 VWS XR HIPS BILAT W OR WO PELVIS 2 VWS Mjzx-Ualen-Jmvrrek disease, left Findings: There is no fracture or destructive lesion. Impression: No acute findings. Chronic deformity of bilateral hips noted. Stable bilateral hardware. 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 Finalized by Dylon Haider MD on 03/16/2024 6:26 AM Normal [facility] PAP ACOG PANEL 2: to on 02-27-2023 Age Gdln ACOG Testing - Normal [facility] Comment on above: Performed By: #### [id number] #### [facility] [address] [place] [address] Dr. Cas Muñiz PAP ACOG PANEL 2: 21 to 29on 02-19-2022 . . Normal [facility] Comment on above: Performed By: #### [id number] #### [facility] [address] [place] [address] Dr. Cas Muñiz Age Gdln ACOG Testing 21-29 [facility] Comment on above: Performed By: #### [id number] #### [facility] [address] [place] [address] Dr. Cas Muñiz DIAGNOSIS: Comment [facility] Comment on above: Result Comment: NEGATIVE FOR INTRAEPITHE LIAL LESION OR MALIGNANCY. FUNGAL ORGANISMS MORPHOLOGICALLY CONSISTENT WITH DONNA SPECIES ARE PRESENT. Performed By: #### [id number] #### [facility] [address] [place] [address] Dr. Cas Muñiz Methodology: Comment [facility] Comment on above: Result Comment: This liquid based ThinPr ep(R) pap test was screened with the use of an image guided system. Performed By: #### [id number] #### [facility] [address] [place] [address] Dr. Cas Muñiz Note: Comment [facility] Comment on above: Result Comment: The Pap smear is a scree dottie test designed to aid in the detection of premalignant and malignant conditions of the uterine cervix. It is not a diagnostic procedure and should not be used as the sole means of detecting cervical cancer. Both false-positive and false-negative reports do occur. . Performed By: #### [id number] #### [facility] [address] [place] [address] Dr. Cas Muñiz Performed by: Comment Normal [facility] Comment on above: Result Comment: Mary Jane Dobbs Cytojuhi ologist (ASCP) Performed By: #### [id number] #### [facility] [address] [place] [address] Dr. Cas Muñiz Reflex Criteria: Comment [facility] Comment on above: Result Comment: The HPV DNA reflex crite chemo were not met with this specimen result therefore, no HPV testing was performed. . Performed By: #### [id number] #### [facility] [address] [place] [address] Dr. Cas Muñiz Specimen adequacy: Comment Normal [facility] Comment on above: Result Comment: Satisfactory for evaluat ion. Endocervical and/or squamous metaplastic cells (endocervical component) are present. Performed By: #### 4 [id number] #### [facility] [address] [address] [address] Cas Muñiz VAGINITIS/VAGINOSIS DNA PROB Tima 02-15-2022 Donna species Positive Abnormal Negative [facility] Comment on above: Performed By: #### VAGINT #### [facility] [address] [address] [address] Cas Muñiz Gardnerella vaginalis Positive Abnormal Negative [facility] Comment on above: Performed By: #### VAGINT #### [facility] [address] [address] [address] Cas Muñiz Trichomonas vaginalis Negative Normal Negative [facility] Comment on above: Performed By: #### VAGINT #### [facility] [address] [address] [address] Cas Muñiz Gynecology Office/Clinic Not tima 04-21-2019 Gynecology Office/Clinic Note Chief Complaint Here to discuss BC Urine HCG today - negative Obstetric History History (0,0,0,1) # 1 Baby 1 Outcome Date: 11/06/2016 Outcome: Live Outcome or Result: Vaginal Gender: Female Gest Age: 40 weeks Wt: 3913 g Hospital: -- [facility] Labor: 16 hr 18 min Child's Name: -- Baby's Father: -- Complications: None Complications: Size, large for gestational age History of Present Illness to discuss bc methods, had trouble with the patch, paragard, nexplanon, doesnt want depo provera, wants to switch to pill, periods are regular Review of Systems PHQ Score Initial Depression Screen Score: 0 Denies chest pain, shortness of breath, fever, chills, nausea, vomiting. States normal bowel and bladder function without hematochezia, diarrhea, constipation, dysuria or hematuria. No myalgias or arthralgias. No weakness or paresthesias. No new rashes or changing moles. Physical Exam Vitals & Measurements HR: 64(Peripheral) RR: 16 BP: 114/64 HT: 156 cm WT: 68.8 kg BMI: 28.27 General exam: Constutional: alert, oriented, in no acute distress, well hydrated, well developed, well nourished. Skin: normal color, no rashes, no lesions, no unusual bruising. Head: Atraumatic, Normocephalic, sclera anicteric, trachea midline, cheryl grossly normal with conversational voice. Mouth: normal dentition Respiratory: No respiratory distress. Comfortable on room air. CV: no lower extremity edema Breast: Deferred Extremities: No deformities, no cyanosis Neuro: Normal sensation, Cranial Nerves II-XII grossly intact, gait normal Psyche: Pleasant, calm affect with conversation, mood appropriate, good eye contact Assessment/Plan 2. General counselling and advice on contraception (Z30.09: Encounter for other general counseling and advice on contraception) The patient presents to discuss control options. The following were presented- BCP- the risks, benefits, pros and cons were discussed including but not limited to BP changes, visual issues, risks of clot formation, irregular spotting and failure as well as worsening migraines. Lifetime decreased risk of ovarian cancer presented. 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 Need to take daily at approximately the same time was stressed as well as use of a second bc method if skipped 3 or more pills in a row. Explained that this is not a means of controlling std's and therefore need to also use condoms as well. IUD-The risks, benefits, pros and cons were discussed including but not limited to irregular bleeding, ovarian cyst formation or absence of periods, infection, expulsion, or misplacement of the device. Counselled on use of condoms to prevent std transmission. Explained US for placement and removal in 5 years. Implanon-The risks, benefits, pros and cons were discussed including but not limited to irregular bleeding or absence of periods, infection, formation of ovarian cyst, device migration, nerve damage and bruising with placement. Also presented the need to use condoms for std transmission prevention. Tubal sterilization- The risks, benefits, pros and cons were discussed including but not limited to the risks related to surgery and general anesthesia as well as recovery. Other risks discussed included irregular bleeding, pain, continued ovulation and potential pms symptoms. Failure and resultant ectopic vs intrauterine presented. Removal of the fallopian tube (Salpingectomy) was also discussed resulting in a lower lifetime risk of ovarian cancer, however its permanence and irreversibility was stressed. She will consider her options. Follow-up With When Contact Information Diana Seo MD Additional Instructions: Diana Seo MD Additional Instructions: Diana Seo MD Additional Instructions: Diana Seo MD Additional Instructions: Problem List/Past Medical History Ongoing No qualifying data Historical Dzsk-Dddmh-Whcbxis disease Procedure/Surgical History left hip surgery (11/05/2013), eye surgery, hip surgery at 7 yo. 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 Living situation: Home/Independent. Alcohol abuse in household: No. Substance abuse in household: No. Smoker in household: Yes. Injuries/Abuse/Neglect in household: No. Feels unsafe at home: No. Safe place to go: Yes. Agency(s)/Others notified: No. Family/Friends available for support: Yes. Concern for family members at home: No. Major illness in household: No. Financial concerns: No. TV/Computer concerns: No., 08/23/2016 Nutrition/Health - No Risk, 08/23/2016 Sexual Sexually active: Yes., 04/21/2019 Substance Abuse - Denies Substance Abuse, 08/23/2016 Tobacco - Denies Tobacco Use, 08/23/2016 Never (less than 100 in lifetime) Tobacco Use:. Never Smokeless Tobacco Use:., 04/21/2019 Family History Depression: Father. Depression: Father. Eczema: Brother. Immunizations Vaccine Date Status Comments diphtheria/pertussis, acel/tetanus adult 11/06/2016 Given Other (see comment) Lab Results Ambulatory Point of Care Results HCG, Urine: Negative (04/21/19 10:37:00 EDT) Normal [facility] Comment on above: Result Comment: Electronically Signed By : Rayray CONCEPCION, Diana Barnes\Date and Time Signed: 04/21/19 10:59 EDT CNOVon 08-16-2017 CNOV Office Visit (INOPIN) SAMMIE DYER ([id number]) 1995 FDate Time Provider Tddlvafbcp35/17/17 3:15 PM OPAL POSEY During your visit today, we recorded the following information about you: Last Period 08/01/17Darhys Posey MD 08/16/2017 3:55 PM SignedI have reviewed the history and physical obtained and documented by theresident and I personally participated in the smalls components. I agree with thefindings and plan of care, with the additions contained within my dictation.Opal Posey M.D.Randy Renee MD 08/16/2017 3:55 PM SignedOrthopaedic Clinic Follow-up Progress NoteAugust 16, 20173:42 PMSammie Gomez21 year oldS/p:Left hip trochanteric osteotomy with osteotomy of impingement lesion of leftanterosuperior femoral head and neck with 3.5 screw fixation of trochantericosteotomy through a lateral approach with surgical dislocation of the left hip.?in 2013Last seen for L greater troch bursitis. Was asked to attempt physical therapy,yoga, and stretching.Subjective:Reports continued L GT pain as well as hip flexor pain. Denies having done anyphysical therapy but does report having tried physical therapy and yoga.Reports pain worse with activity. Denies new trauma. Denies fevers/chills.XR:Unchanged appearance post-op from last visit.PE:AAOx3, NADTTP GT, painful with resisted abductionNot painful with log roll, IR/ERVery painful with stretch of hip flexorsSILT throughout02/01 strength throughoutAssessment and Plan:Sammie Gomez is a 21 year old with tight abductors and GT bursitis andtight hip flexors-continued stretching and yoga-physical therapy-discussed importance of continued conditioningRandy ThelmaJANLELEGY-3 Orthopaedic SurgeryPager [phone] PMAfter 5:00PM and weekends, please page 2-BONEReferring Provider: SELF [200]Allergies As of Date: 08/16/2017(No Known Allergies)Date Reviewed: 08/16/2017Reviewed by: Gracia Gambino Ma - Fully AssessedReason for Visit: Established Patient [175] Cmt: left hip painPrimary Visit Diagnosis:Hip impingement syndrome, unspecified laterality [M25.859] Other Visit Diagnoses:Trochanteric bursitis of left hip [M70.62] Hip flexor tendinitis, left [M76.892]Problem List As Of Date 08/16/2017 Noted Resolved Hip impingement syndrome [M25.859] INVALID FOR*Letter [facility] M[facility].Department of Pediatric Orthopaedic Surgery / [id number] [place], [place] [id number]: [phone] Appts.: [phone]: August 16, 2017RE: Sammie GomezCCF#: [id number]: (M25.859) Hip impingement syndrome, unspecified laterality(primary encounter diagnosis)Comment: Please evaluate and treat for AB-Duction and Hip FlexorStrengtheningInclude ReconditioningTo Whom It May Concern:Please provide a physical therapy evaluation and begin appropriate treatment.This therapy is a necessary part of the patient's medical therapy.If you have any questions or need additional information, please contact ouroffice at the number listed above.Sincerely,Opal Posey M.D. Status:Closed by OPAL POSEY MD on 08/16/17 [facility] PROGRESSon 08-16-2017 PROGRESS HNO ID: [id number] thor: Randy (Res) SuraceService: (none)Author Type: ResidentType: Progress NotesFiled: 08/16/2017 3:55 PMNote Text:Orthopaedic Clinic Follow-up Progress NoteNov20163:42 PMaSmmie Gomez21 year oldS/p:Left hip trochanteric osteotomy with osteotomy of impingement lesion ofleft anterosuperior femoral head and neck with 3.5 screw fixation oftrochanteric osteotomy through a lateral approach with surgicaldislocation of the left hip.?in 2013Last seen for L greater troch bursitis. Was asked to attempt physicaltherapy, yoga, and stretching.Subjective:Reports continued L GT pain as well as hip flexor pain. Denies having doneany physical therapy but does report having tried physical therapy andyoga. Reports pain worse with activity. Denies new trauma. Deniesfevers/chills.XR:Unchang ed appearance post-op from last visit.PE:AAOx3, NADTTP GT, painful with resisted abductionNot painful with log roll, IR/ERVery painful with stretch of hip flexorsSILT throughout5/5 strength throughoutAssessment and Plan:Sammie Gomez is a 21 year old with tight abductors and GT bursitis andtight hip flexors-continued stretching and yoga-physical therapy-discussed importance of continued conditioningPeJANELLE ParsonGY-3 Orthopaedic SurgeryPager [phone]:[phone] PMAfter 5:00PM and weekends, please page 2-BONE Normal [facility] PROGRESS HNO ID: [id number] thor: Opal Mcdaniels: (none)Author Type: PhysicianType: Progress NotesFiled: 08/16/2017 3:55 PMNote Text:I have reviewed the history and physical obtained and documented by theresident and I personally participated in the smalls components. I agree withthe findings and plan of care, with the additions contained within mydictation.Opal Posey M.D. Normal [facility] PROGRESS HNO ID: [id number] thor: Sheila Rodriguez RtService: (none)Author Type: (none)Type: Progress NotesFiled: 08/16/2017 3:18 PMNote Text: Radiology Service Progress NotePATIENT NAME: Sammie GomezMRN: [id number] OF SERVICE: August 16, 2017TIME: 3:04 PMPATIENT IDENTITY VERIFICATION COMPLETED USING TWO (2) METHODS: Patientconfirmed name verbally and Date of .PATIENT GENDER DATA: Female. status: : NoBreastfeeding status: NO.PATIENT RELEVANT IMPLANT DATA REVIEWED: Not ApplicableRADIOLOGY DEPARTMENT: General X-ray: Exam(s) Completed: Pelvis X-Ray:Pelvis with Hip LeftPERIPHERAL IV DATA: Not applicableSIGNED BY: Sheila Rodriguez RtNov2016 3:04 PM Normal [facility] XR HIP 3V PELV+ AP/LAT LTon 08-16-2017 XR HIP 3V PELV+ AP/LAT LT * * *Final Report* * *DATE OF EXAM: Aug 16 2017 3:17PM CCX 5351 - XR HIP 3V PELV+ AP/LAT LT / REASON: Other specified joint disorders, unspecified hip * * * * Physician Interpretation * * * * EXAMINATION: XR HIP 3V PELV+ AP/LAT LTHISTORY: left hip pain x 1 year. no injury. started new job where she is on her feet all day. 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 2 screws transfix the left intertrochanteric femur are intact. Small focus of heterotopic ossification at the superior tip of greater trochanter on the left. Minimal axial narrowing of the left hip joint.On the right side is mildly shallow acetabulum with slight foreshortening of the femoral head. The hip joint is preserved. There are 2 supra-acetabular screws and mild deformity of the right iliac wing as seen previously.Intrauterine right.No other significant abnormality. IMP RESSION:NO SIGNIFICANT CHANGETranscriptionist: SVEN Transcribe Date/Time: Aug 16 2017 4:42PDictated by : NELSY JOHNSON MDThis examination was interpreted and the report reviewed and electronically signed by: NELSY JOHNSON MD on Aug 16 2017 4:46PM [id number] Normal [facility] CNOVon 05-10-2017 CNOV Office Visit (INOPIN) SAMMIE DYER ([id number]) 1995 FDate Time Provider Department05/10/17 3:15 PM OPAL POSEY During your visit today, we recorded the following information about you: Weight Height Last Period 68 kg 1.575 m 04/28/17Darhys Posey MD 05/10/2017 3:45 PM SignedORTHOPAEDIC SURGERYReferring Physician:SELFCC: Left hip painHPI: Sammie Gomez is a pleasant 21 year old female who is here with the chiefcomplaint of left hip pain. Sammie has previously had surgical dislocationrecreation of femoral neck off set due to abnormality within left hip. She hadbeen doing very well but 6 months ago gave to a beautiful baby girl.During and delivery she was developing hip pain again and she pointsover lateral aspect of her hip. Here today further assessment. The pain isnot improving. Here today for assessment. No numbness or tingling. Noswelling erythema or fluctuance.No past medical history on file.No past surgical history on file.No family history on file.Social History Marital status: Single Spouse name: Years of education: Number of children:Social History Main Topics Smoking status: Never SmokerALLERGIESNo Known AllergiesNo current outpatient prescriptions on file prior to visit.No current facility-administered medications on file prior to visit.Review of systems:General: no fever, chills, night sweatsSkin: no rashesHead: no headachesEyes: no vision problemsEars: no recent ear infectionsNose: no recent rhinorrheaMouth/throat: No throat painRespiratory: no coughCardiovascular: no cyanosisGastrointestinal: denies N/VGenitourinary: no blood in urineEndocrine: no heat intoleranceMusculoskeletal: SEE HPISkin/lymphatics: no easy bruisingNeuropsychiatric: no tearfulnessAll other systems negative other than those listed abovePhysical Exam:On examination today there is tenderness over the abductor musculature andtrochanter. Negative impingement today. Even doing hip flexion and stretchingacross the chest is not causing pain within the joint but any stretch thatinvolves the abductors causing discomfort similar to what pain she gets duringthe day. No erythema or fluctuance. No swelling. Ambulating today with anonantalgic gait. No Trendelenburg. No acute distress.Imaging:Radiographs are reviewed which are relatively unchanged from previous again hipdysplasia identified.Assessment/Plan:Janet gnosis: Left hip trochanteric bursitis with abductor muscular irritation andtendinitis.Plan: We have reviewed in detail overall findings and expectations. We havediscussed the benefits stretching exercises core strengthening and working withphysical therapy to assist with minimization of overall discomfort.Expectations been reviewed and will likely reassess in 4-6 months timeclinically.Wilmar Yap Provider: SELF [200]Allergies As of Date: 05/10/2017(No Known Allergies)Date Reviewed: 05/10/2017Reviewed by: Gracia Gambino Ma - Fully AssessedReason for Visit: Established Patient [175] Cmt: left hip painPrimary Visit Diagnosis:Hip impingement syndrome, unspecified laterality [M25.859] Other Visit Diagnosis:Trochanteric bursitis of left hip [M70.62]Order(s):CONSULT TO PHYSICAL THERAPY [9014] Order #: [id number]: 1Problem List As Of Date 05/10/2017 Noted Resolved Hip impingement syndrome [M25.859] INVALID FOR* Status:Closed by OPAL POSEY MD on 05/10/17 Normal [facility] PROGRESSon 05-10-2017 PROGRESS HNO ID: [id number] thor: Opal Mcdaniels: (none)Author Type: PhysicianType: Progress NotesFiled: 05/10/2017 3:45 PMNote Text:ORTHOPAEDIC SURGERYReferring Physician:SELFCC: Left hip painHPI: Sammie Gomez is a pleasant 21 year old female who is here with thechief complaint of left hip pain. Sammie has previously had surgicaldislocation recreation of femoral neck off set due to abnormality withinleft hip. She had been doing very well but 6 months ago gave to abeautiful baby girl. During and delivery she was developing hippain again and she points over lateral aspect of her hip. Here todayfurther assessment. The pain is not improving. Here today forassessment. No numbness or tingling. No swelling erythema or fluctuance.No past medical history on file.No past surgical history on file.No family history on file.Social History Marital status: Single Spouse name: Years of education: Number of children:Social History Main Topics Smoking status: Never SmokerALLERGIESNo Known AllergiesNo current outpatient prescriptions on file prior to visit.No current facility-administered medications on file prior to visit.Review of systems:General: no fever, chills, night sweatsSkin: no rashesHead: no headachesEyes: no vision problemsEars: no recent ear infectionsNose: no recent rhinorrheaMouth/throat: No throat painRespiratory: no coughCardiovascular: no cyanosisGastrointestinal: denies N/VGenitourinary: no blood in urineEndocrine: no heat intoleranceMusculoskeletal: SEE HPISkin/lymphatics: no easy bruisingNeuropsychiatric: no tearfulnessAll other systems negative other than those listed abovePhysical Exam:On examination today there is tenderness over the abductor musculature andtrochanter. Negative impingement today. Even doing hip flexion andstretching across the chest is not causing pain within the joint but anystretch that involves the abductors causing discomfort similar to whatpain she gets during the day. No erythema or fluctuance. No swelling.Ambulating today with a nonantalgic gait. No Trendelenburg. No acutedistress.Imaging:Radiogra phs are reviewed which are relatively unchanged from previousagain hip dysplasia identified.Assessment/Plan:Janet gnosis: Left hip trochanteric bursitis with abductor muscularirritation and tendinitis.Plan: We have reviewed in detail overall findings and expectations. Wehave discussed the benefits stretching exercises core strengthening andworking with physical therapy to assist with minimization of overalldiscomfort. Expectations been reviewed and will likely reassess in 4-6months time clinically.Opal Posey MD Normal [facility] PROGRESS HNO ID: [id number] thor: Lisa (Rt) Ruthie Rojo: (none)Author Type: TechnicianType: Progress NotesFiled: 05/10/2017 2:47 PMNote Text: Radiology Service Progress NotePATIENT NAME: Sammie LainezdenMRN: [id number] OF SERVICE: May 10, 2017TIME: 2:47 PMPATIENT IDENTITY VERIFICATION COMPLETED USING TWO (2) METHODS: Patientconfirmed name verbally and ID band matches..PATIENT GENDER DATA: Female. status: : NoBreastfeeding status: NO.PATIENT RELEVANT IMPLANT DATA REVIEWED: YesRADIOLOGY DEPARTMENT: General X-ray: Exam(s) Completed: Pelvis X-Ray:Pelvis with Hip LeftPERIPHERAL IV DATA: Not applicableSIGNED BY: Lisa Rojo [facility] 2:47 PM Normal [facility] XR HIP AP/TRUE LAT W PELV LT on 05-10-2017 XR HIP AP/TRUE LAT W PELV LT * * *Final Report* * *DATE OF EXAM: May 10 2017 2:48PM CCX 2772 - XR HIP AP/TRUE LAT W PELV LT - LEFT / REASON: Pain, unspecified * * * * Physician Interpretation * * * * HISTORY: Pain, unspecifiedSTATED HISTORY: HIP IMPINGEMENT SYNDROMETECHNIQUE: XR HIP AP/TRUE LAT W PELV LTRESULT: Pelvis and left hip 3 views, compared to 07/28/2014.Bilateral hip deformities with trochanteric overgrowth, left more so than right, unchanged from prior. 2 transfixing screws across the intertrochanteric left femoral neck. 2 screws in the right supra-acetabular ilium. 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 Small ossification lateral to the right acetabulum unchanged. Adjacent right ilium deformity likely related to the anterior inferior iliac spine.The acetabula are shallow bilaterally but the hip joint spaces are preserved.Iliac crest apophyses are partly open.There is a T-shaped intrauterine device.IMPRESSION: NO SIGNIFICANT CHANGE.Explosive Operator Bomb: SVEN Transcribe Date/Time: May 10 2017 2:54PDictated by : JUAN M COPELAND MDThis examination was interpreted and the report reviewed and electronically signed by: JUAN M COPELAND MD on May 10 2017 2:57PM EST Normal [facility] Vital Signs Date Time Vital Sign Value Performing Clinician Faci lity 06-09-2025 16:03-0400 Body mass index (BMI) [Ratio] 30.03 kg/m2 Eladia Pete NP Work Phone: [facility] 06-09-2025 16:03-0400 Body weight 75.07 kg Ealdia Pete CLINICAL DATA ANALYST Work Phone: [facility] 06-09-2025 16:03-0400 Diastolic blood pressure 68 mm[Hg] Eladia Pete CLINICAL DATA ANALYST Work Phone: [facility] 06-09-2025 16:03-0400 Systolic blood pressure 120 mm[Hg] Eladia Pete CLINICAL DATA ANALYST Work Phone: [facility] 05-25-2024 14:27-0400 Body mass index (BMI) [Ratio] 27.96 kg/m2 Caryl BOYCE Work Phone: [facility] 05-25-2024 14:27-0400 Body weight 69.91 kg Caryl BOYCE Work Phone: [facility] 05-25-2024 14:27-0400 Diastolic blood pressure 70 mm[Hg] Caryl Ch PA Work Phone: [facility] 05-25-2024 14:27-0400 Systolic blood pressure 120 mm[Hg] Caryl Ch PA Work Phone: [facility] Healthcare Encounters Encounter Date Encounter Type Care Provider Facility Start: 06-09-2025 End: 06-09-2025 Patient encounter procedure Eladia Pete CLINICAL DATA ANALYST Work Phone: [facility] Start: 06-09-2025 End: 06-09-2025 Periodic preventive med est patient 18-39 yrs Eladia Marrufoerly CLINICAL DATA ANALYST Work Phone: [facility] Comment on above: Well woman exam with routine gynecological exam Start: 06-09-2025 End: 06-09-2025 Bamboo flowsheet Eladia Pete CLINICAL DATA ANALYST Work Phone: [facility] Start: 06-09-2025 End: 06-09-2025 Bamboo flowsheet Eladia Pete CLINICAL DATA ANALYST Work Phone: [facility] Start: 12-23-2024 End: 12-23-2024 ambulatory CARYL CH Not Available Start: 07-06-2024 End: 07-06-2024 ambulatory CARYL CH Not Available Start: 07-06-2024 End: 07-06-2024 Online digital e/m svc est pt <7 d 5-10 minutes Caryl BOYCE Work Phone: [facility] Comment on above: Yeast infection (Elana leann Dx) Start: 07-06-2024 End: 07-06-2024 Bamboo flowsheet Caryl BOYCE Work Phone: [facility] Start: 07-06-2024 End: 07-06-2024 Bamboo flowsheet Caryl BOYCE Work Phone: [facility] Start: 05-25-2024 End: 05-25-2024 Bamboo flowsheet Caryl BOYCE Work Phone: [facility] Start: 05-25-2024 End: 05-29-2024 Bamboo flowsheet Caryl BOYCE Work Phone: [facility] Start: 05-25-2024 End: 05-29-2024 Clinisync Result Encounter Caryl BOYCE Work Phone: [facility] Unsolicited Start: 05-25-2024 End: 05-27-2024 External Result Encounter Carly BYOCE Work Phone: [facility] Unsolicited Start: 05-25-2024 End: 05-25-2024 Patient encounter procedure Caryl BOYCE Work Phone: [facility] Work Phone: Start: 05-25-2024 End: 05-25-2024 Periodic preventive med est patient 18-39 yrs Caryl BOYCE Work Phone: [facility] Comment on above: Well woman exam with routine gynecological exam; Exposure to STD; Vaginal discharge Start: 05-25-2024 End: 05-25-2024 ambulatory CARYL CH Not Available Start: 03-14-2024 End: 03-14-2024 ambulatory [facility] Start: 02-18-2023 End: 02-18-[address] ARLETTE VARGAS . Facility: Start: 02-13-2022 End: 02-13-2022 ambulatory NONE LISTED REQUEST Facility: Start: 08-16-2017 End: 08-16-2017 Ambulatory OPAL POSEY [facility] Start: 05-10-2017 End: 05-14-2017 Ambulatory OPAL POSEY [facility] Procedures Date Procedure Procedure Detail Performing Clinician Start: 05-25-2024 URETHRITIS/DISCHARGE PLUS VAGINITIS (HTRX) Caryl BOYCE Work Phone: Start: 05-25-2024 IGP,APTIMA HPV,AGE GDLN Caryl BOYCE Work Phone: Plan of Treatment Date Care Activity Detail Author Start: 06-15-2026 End: 06-15-2026 Patient encounter procedure 06/15/2026 4:00 PM EDT [facility] [address] [place] [address] Walter Portillo, [address], [place] [id number] [facility] Start: 06-09-2025 End: 06-09-2025 Patient encounter procedure [facility] Comment on above: Arrived Start: 05-31-2025 Influenza vaccination Influenza Vacc ine (#1) [facility] Start: 07-06-2024 End: 07-06-2024 Patient encounter procedure 07/06/2024 3:50 PM EDT Office Visit [facility] [address] [place] [phone] Caryl Ch PA [address] [place], [place] [id number] [facility] Start: 05-31-2024 Influenza vaccination Influenza Vacc ine (#1) [facility] Start: 05-25-2024 End: 05-25-2024 Patient encounter procedure 05/25/2024 2:00 PM EDT Office Visit [facility] [address] [place] [phone] Caryl Ch PA [address] [place], [place] [phone] Arrived [facility] Comment on above: Arrived CHLAMYDIA TRACHOMATI S (GENITO/STI) CHLAMYDIA TRACHOMATIS (GENITO/STI) Lab Routine Exposure to STD Ordered: 05/25/2024 [facility] Comment on above: Ordered: 05/25/2024 Cytology Cervical or vaginal smear or scraping study Pap Smear Pathology and Cytology Routine Well woman exam with routine gynecological exam Ordered: 05/25/2024 [facility] Work Phone: Comment on above: Ordered: 05/25/2024 Cytology Cervical or vaginal smear or scraping study Pap Smear Pathology and Cytology Routine Well woman exam with routine gynecological exam Ordered: 06/09/2025 [facility] Work Phone: Comment on above: Ordered: 06/09/2025 Neisseria gonorrhoea e DNA [Presence] in Unspecified specimen by HEATHER with probe detection Neisseria gonorrhea DNA probe, direct Lab Routine Exposure to STD Ordered: 05/25/2024 [facility] Comment on above: Ordered: 05/25/2024 SURESWAB(R) ADVANCED VAGINITIS PLUS, TMA SURESWAB(R) ADVANCED VAGINITIS PLUS, TMA Pathology and Cytology Routine Vaginal discharge Ordered: 05/25/2024 [facility] Comment on above: Ordered: 05/25/2024 Payers Date Payer Category Payer [facility] BCBS [id number] 2024 Unknown [id number] 2024 Medicaid MEDICAID [facility] [id number] 2024-Present [phone] [address] [place] [address] Medicaid [id number] 1995 Unknown [id number] 1995 Unknown [id number] 1995 Unknown [id number] 1995 Unknown [id number] 1995 Unknown [id number] 1995 Unknown [id number] 1959 Unknown [id number] 1959 Unknown [id number] 1959 Unknown [id number] Social History Date Type Detail Facility Start: [facility]23 [facility] Start: 05-25-2024 End: 06-09-2025 Alcoholic beverage intake Lifetime non-drinker (finding) [facility] Start: 02-20-2024 End: 06-09-2025 History of Social function [facility] Start: 02-20-2024 End: 06-09-2025 Tobacco use panel [facility] Start: 03-07-2023 Alcohol Comment caffeine intak e: 1-2 cups per day; coffee [facility] Start: 1995 Sex assigned at Not on file [facility] History of Present illness Narrative 06-09-2025 AUSTEN Raines - 06/09/2025 4:00 PM EDT Note Date & Type Note Facility 06-09-2025 History of Presen t illness Narrative Reason for Appointment: Patient ID: Sammie Davis is a 29 y.o. female who presents for Well Women Visit Patient presents today for Annual Exam. 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) Pleurisy 11/2015 [facility]-[place] Skin rash Social History Tobacco Use Smoking status: Never Smokeless tobacco: Not on file Substance Use Topics Alcohol use: Never Comment: caffeine intake: 1-2 cups per day; coffee Drug use: Never FAMILY HISTORY Family History Problem Relation Name Age of Onset Mental illness Father Suicide age 44 Cervical cancer Maternal Grandmother SURGICAL HISTORY Past Surgical History: Procedure Laterality Date OTHER SURGICAL HISTORY 2000 Severe lazy eye repair OTHER SURGICAL HISTORY 2002 Surgery d/t Perthes Dz Right leg OTHER SURGICAL HISTORY 2013 RT Hip repair (2 screws) OTHER SURGICAL HISTORY 2019 childbirth OVARY SURGERY 2019 Right ovary removed TUBAL LIGATION Left 2020 REVIEW OF SYSTEMS [...] note reviewed. Exam conducted with a wire spiral binder present. Vitals: Estimated body mass index is 30.03 kg/m as calculated from the following: Height as of 09/28/20: 5' 2.25 . Weight as of this [...] with those once we have them. Patient can also view results via [employer]. I reinforced importance of condom use for [...] Eladia Pete NP documented in this encounter [facility] History of Present illness Narrative 07-06-2024 AUSTEN Raines - 07/06/2024 3:50 PM EDT Note Date & Type Note Facility 07-06-2024 History of Presen t illness Narrative Reason for Appointment: Patient ID: Sammie Davis is a 28 y.o. female who presents for No chief complaint on file. Patient presents today via telephone call for a telehealth appointment. Patients Phone #: [phone] (mobile) Current Medications: currently has no medications in their medication list. Medical History: Active Ambulatory Problems Diagnosis Date Noted No Active Ambulatory Problems Resolved Ambulatory Problems Diagnosis Date Noted No Resolved Ambulatory Problems Past Medical History: Diagnosis Date Perthes disease Pleurisy 11/2015 Skin rash Family History Problem Relation Name Age of Onset Mental illness Father Suicide age 44 Social History Tobacco Use Smoking status: Never Smokeless tobacco: Not on file Substance Use Topics Alcohol use: Never Comment: caffeine intake: 1-2 cups per day; coffee Drug use: Never Past Surgical History: Procedure Laterality Date OTHER SURGICAL HISTORY 2000 Severe lazy eye repair OTHER SURGICAL HISTORY 2002 Surgery d/t Perthes Dz Right leg OTHER SURGICAL HISTORY 2013 RT Hip repair (2 screws) OTHER SURGICAL HISTORY 2019 childbirth OVARY SURGERY 2019 Right ovary removed TUBAL LIGATION Left 2020 Allergies Allergen Reactions 2nd Skin Quick Heal Hives Steri strips Vitals: Estimated body mass index is 27.96 kg/m as calculated from the following: Height as of 09/28/20: 5' 2.25 . Weight as of 05/25/24: 154 lb 1.9 oz. BP: No LMP recorded. Assessment/Plan No diagnosis found. Today's telehealth visit consisted of spending 5 minutes talking to patient on the phone. We discussed culture results. Patient states doing better but had some questions about libido. We discussed possible reasons for decreased libido. If symptoms persist, pt will call and we can order hormone levels for her at that time. It was offered today but she has decided to wait and see if she has some improvement Documented by AUSTEN Raines on behalf of: AUSTEN Raines documented in this encounter [facility] History of Present illness Narrative 05-25-2024 AUSTEN Raines - 05/25/2024 2:00 PM EDT Note Date & Type Note Facility 05-25-2024 History of Presen t illness Narrative Reason for Appointment: Patient ID: Sammie Davis is a 28 y.o. female who presents for Well Women Visit Patient presents today for Annual Exam. MEDICATIONS No current outpatient medications ALLERGIES Allergies Allergen Reactions 2nd Skin Quick Heal Hives Steri strips PROBLEMS Active Ambulatory Problems Diagnosis Date Noted No Active Ambulatory Problems Resolved Ambulatory Problems Diagnosis Date Noted No Resolved Ambulatory Problems Past Medical History: Diagnosis Date Perthes disease Pleurisy 11/2015 Skin rash HISTORY PAST MEDICAL HISTORY SOCIAL HISTORY Past Medical History: Diagnosis Date Perthes disease Pleurisy 11/2015 [facility]-ple[facility]isy Skin rash Social History Tobacco Use Smoking status: Never Smokeless tobacco: Not on file Substance Use Topics Alcohol use: Never Comment: caffeine intake: 1-2 cups per day; coffee Drug use: Never FAMILY HISTORY Family History Problem Relation Name Age of Onset Mental illness Father Suicide age 44 SURGICAL HISTORY Past Surgical History: Procedure Laterality Date OTHER SURGICAL HISTORY 2000 Severe lazy eye repair OTHER SURGICAL HISTORY 2002 Surgery d/t Perthes Dz Right leg OTHER SURGICAL HISTORY 2013 RT Hip repair (2 screws) OTHER SURGICAL HISTORY 2019 childbirth OVARY SURGERY 2019 Right ovary removed TUBAL LIGATION Left 2020 REVIEW OF SYSTEMS [...] note reviewed. Exam conducted with a wire spiral binder present. Vitals: Estimated body mass index is 27.96 kg/m as calculated from the following: Height as of 09/28/20: 5' 2.25 . Weight as of this encounter: 154 lb 1.9 oz. BP: 120/70 Patient's last menstrual period was 05/02/2024. ASSESSMENT & PLAN ICD-10-CM 1. Well woman exam with routine gynecological exam Z01.419 Pap Smear Annual Exam: Patient presents today for an annual exam. Patient states she is doing well but states she is having recurrent yeast infections. Pt state has had rx for diflucan few times, does well for week or two then returns.Pap was obtained without difficulty. Patient is having recurrent Yeast infection and we will do cultures at this time. Patient instructed will send script in at this time. Follow Up: Pt will schedule a telehealth visit in 6 weeks to check on condition to see if 10 day course worked. Patient is to return in one year for annual unless needed otherwise. Documented by Miguelina Fields LPN on behalf of: AUSTEN Raines documented in this encounter [facility] Evaluation note Note Date & Type Note Facility Evaluation note Diagnosis Yeast infection- Primary documented in this encounter [facility] Evaluation note Note Date & Type Note Facility Evaluation note Diagnosis Well woman exam with routine gynecological exam Routine gynecological examination Exposure to STD Vaginal discharge Leukorrhea, not specified as infective documented in this encounter [facility] Evaluation note Note Date & Type Note Facility Evaluation note Diagnosis Well woman exam with routine gynecological exam Routine gynecological examination documented in this encounter [facility] Summary Purpose Family History No Family History Records FoundNo Family History Records FoundNo Family History Records FoundNo Family History Records FoundNo Family History Records FoundNo Family History Records Found Advance Directives No Advanced Directives Records FoundNo Advanced Directives Records FoundNo Advanced Directives Records FoundNo Advanced Directives Records FoundNo Advanced Directives Records FoundNo Advanced Directives Records Found Additional Source Comments INFORMATION SOURCE (unrecogn ized section and content) DATE CREATED AUTHOR 03/25/2018 [facility] DATE CREATED AUTHOR AUTHOR'S ORGANIZ ATION 05/08/2019 [facility] DATE CREATED AUTHOR AUTHOR'S ORGANIZ ATION 07/01/2022 [facility] DATE CREATED AUTHOR AUTHOR'S ORGANIZ ATION 03/08/2023 [facility] DATE CREATED AUTHOR AUTHOR'S ORGANIZ ATION 03/16/2024 [facility] DATE CREATED AUTHOR AUTHOR'S ORGANIZ ATION 12/25/[address] [facility] EPIC Reason for Visit (unrecogniz ed section and content) Reason Comments Well Women Visit FOR RECORDS PERTAINING TO PATIENTS WHO ARE OR HAVE BEEN ENROLLED IN A CHEMICAL DEPENDENCY/SUBSTANCEABUSE PROGRAM, SOME INFORMATION MAY BE OMITTED. This clinical summary was aggregated from multiple sources. Caution should be exercised in using it in the provision of clinical care. This summary normalizes information from multiple sources, and as a consequence, information in this document may materially change the coding, format and clinical context of patient data. In addition, data may be omitted in some cases. CLINICAL DECISIONS SHOULD BE BASED ON THE PRIMARY CLINICAL RECORDS. [facility]. provides no warranty or guarantee of the accuracy or completeness of information in this document.
[2025-06-15 11:09] LABS: Age Gdln ACOG Testing Note (.); IGP, rfx Aptima HPV ASCU Note (.)
== END 2025-06-09 20:23 | disposition home or self-care (01) ==
LOC: LAB 20:22
PROVIDERS: Visit Provider Nurse Practitioner Family
DX: Z01.419 Encounter for gynecological examination (general) (routine) without abnormal findings (principal)
CPT/HCPCS: 88175